=== PATIENT | male | born 1985 | race Caucasian/White ===

== ENCOUNTER 2019-03-03 22:30 | Emergency (ER) | payer OTHER ==
[~2019-03-03] VITALS: Ht 157.5 cm; Wt 99.1 kg
[~2019-03-03 22:30] MED LIST: HYDR-3240 PO; ONDA4TAB10 PO; OXYC-302 PO
--- NOTE | 2019-03-03 23:20 | NUR ---
assessment made. chart up for MD to see.
--- NOTE | 2019-03-03 23:24 | NUR ---
PA at bedside.
[2019-03-03] MEDS ORDERED: SODIUM CHLORIDE FLUSH 10ML SYR IVF ONE (23:30)
--- NOTE | 2019-03-03 23:43 | NUR ---
IV placed. blood drawn. urine sent to lab. declined pain medication at this time. awaiting CT scan.
[2019-03-03 23:49] LABS: BASOPHILS # (AUTO) 0.04 x10^3/uL (0-0.1); BASOPHILS % (AUTO) 0 % (0-1); EOSINOPHILS # (AUTO) 0.31 x10^3/uL (0-0.4); EOSINOPHILS % (AUTO) 3 % (1-7); LYMPHOCYTES # (AUTO) 2.94 x10^3/uL (1-3.4); LYMPHOCYTES % (AUTO) 28 % (22-44); MD NO; MEAN CORPUSCULAR HGB CONC 33.5 g/dL (33.2-36.2); MEAN CORPUSCULAR VOLUME 92.4 fL (81-97); MEAN PLATELET VOLUME 6.5 fL (7.4-10.4); MONOCYTES # (AUTO) 0.92 x10^3/uL (0.2-0.8); MONOCYTES % (AUTO) 9 % (2-9); NEUTROPHILS # (AUTO) 6.45 x10^3/uL (1.8-6.8); NEUTROPHILS % (AUTO) 61 % (42-75); PLATELET COUNT 352 x10^3/uL (130-400); RED BLOOD COUNT 4.84 x10^6/uL (4.38-5.82); RED CELL DISTRIBUTION WIDTH 13.4 % (9.4-14.8)
[2019-03-03 23:51] LABS: MICROSCOPIC NOT IND
[2019-03-03 23:57] LABS: CULTURE INDICATED? NO
[2019-03-04] LABS: ALBUMIN 3.7 g/dL (3.4-5.0); ANION GAP 7 mmol/L (5-15); CALCIUM 8.9 mg/dL (8.5-10.1); CHLORIDE 107 mmol/L (98-107)
[2019-03-04 00:04] LABS: ALANINE AMINOTRANSFERASE 39 U/L (12-78); ALKALINE PHOSPHATASE 102 U/L (45-117); BILIRUBIN,TOTAL 0.5 mg/dL (0.2-1.0); CREATININE 0.99 mg/dL (0.7-1.3); TOTAL PROTEIN 7.8 g/dL (6.4-8.2)
--- NOTE | 2019-03-04 00:12 | NUR ---
patient to CT Scan.
[2019-03-04] MEDS ORDERED: OMNIPAQUE 350 MG/ML, 100ML BOTTLE ONE (00:22)
--- NOTE | 2019-03-04 00:29 | NUR ---
chacho rn: pt back from ct, wants pain meds. alerted md.
[2019-03-04] MEDS ORDERED: MORPHINE SULFATE 4 MG/ML, 1ML ONE (00:40)
[2019-03-04] MEDS ORDERED: MORPHINE SULFATE 4 MG/ML, 1ML IVPush PRN (01:00)
--- NOTE | 2019-03-04 01:13 | NUR ---
PA at bedside for re-evaluation.
--- NOTE | 2019-03-04 01:22 | NUR ---
patient discharged with prescriptions and instruction. verbalized understanding. patient c/o abdominal cramping. bentyl prescription given.
[2019-03-04 01:23] VITALS: BP 111/69
[2019-03-04] MEDS ORDERED: MAALOX/HYOSCYAMINE/LIDOCAINE 45 ML BTL ONE (01:40)
[2019-03-04] MEDS ORDERED: ONDANSETRON ODT 4 MG ONE (01:40)
--- NOTE | 2019-03-04 01:42 | NUR ---
discharge held. patient started vomiting and c/o epigastric pain. MD aware. medicated.
[2019-03-04] MEDS ORDERED: MAALOX/HYOSCYAMINE/LIDOCAINE 45 ML BTL PO ONE (02:00)
[2019-03-04] MEDS ORDERED: ONDANSETRON ODT 4 MG PO ONE (02:00)
--- NOTE | 2019-03-04 02:02 | NUR ---
patient feeling much better. discharged.
== END 2019-03-04 01:26 ==
LOC: ED 22:39
DX: R10.31 Right lower quadrant pain (principal); R11.0 Nausea
CPT/HCPCS: 36415; 74177; 80053; 81003; 83690; 85025; 96374; 99284; J2270; Q0162; Q9967

== ENCOUNTER 2020-11-11 18:06 | Emergency (ER) | payer OTHER ==
[~2020-11-11] VITALS: Ht 154.9 cm; Wt 95.9 kg
[~2020-11-11 18:06] MED LIST changes: +HYDR-1067 PO; -HYDR-3240 PO; -OXYC-302 PO; +OXYC1TAB14 PO
--- NOTE | 2020-11-11 18:24 | NUR ---
PT WHEELED BACK TO ROOM, CHANGED INTO GOWN. MONITORS IN PLACE. CALL LIGHT WITHIN REACH. AT BS
[2020-11-11] MEDS ORDERED: SODIUM CHLORIDE FLUSH 10ML SYR IVF ONE (18:30)
--- NOTE | 2020-11-11 18:32 | NUR ---
XRAY AT BS
[2020-11-11 18:49] LABS: BASOPHILS % (AUTO) 1 % (0-1); EOSINOPHILS % (AUTO) 3 % (1-7); LYMPHOCYTES % (AUTO) 30 % (22-44); MD NO; MEAN CORPUSCULAR HEMOGLOBIN 31.3 pg (27.5-34.5); MEAN PLATELET VOLUME 6.8 fL (7.4-10.4); MONOCYTES % (AUTO) 9 % (2-9); NEUTROPHILS % (AUTO) 58 % (42-75); PLATELET COUNT 358 x10^3/uL (130-400); RED BLOOD COUNT 4.79 x10^6/uL (4.38-5.82); RED CELL DISTRIBUTION WIDTH 12.9 % (9.4-14.8)
[2020-11-11 19:00] LABS: ALANINE AMINOTRANSFERASE 44 U/L (12-78); ANION GAP 7 mmol/L (5-15); CALCIUM 8.6 mg/dL (8.5-10.1); CHLORIDE 109 mmol/L (98-107)
[2020-11-11 19:04] LABS: ALKALINE PHOSPHATASE 113 U/L (45-117); BILIRUBIN,TOTAL 0.4 mg/dL (0.2-1.0); CREATININE 0.87 mg/dL (0.7-1.3); TOTAL PROTEIN 7.8 g/dL (6.4-8.2); TROPONIN I < 0.015 ng/mL (0.000-0.045)
[2020-11-11 20:00] VITALS: BP 109/82
--- NOTE | 2020-11-11 20:00 | NUR ---
1ST CONTACT C PT. DENIES ANY PAIN. VSS. PT & FAMILY STATE MD WAS JUST IN TO SEE THEM & PLAN IS TO GO HOME .
== END 2020-11-11 20:35 | disposition home or self-care (01) ==
LOC: ED 20:01
DX: R07.2 Precordial pain (principal)
CPT/HCPCS: 36415; 71045; 80053; 84484; 85025; 93005; 99285